=== PATIENT | male | born 1995 | race Caucasian/White ===

== ENCOUNTER 2023-04-17 11:57 | Emergency (ER) | payer MEDICAID ==
[~2023-04-17] VITALS: Ht 172.7 cm; Wt 59.1 kg
[2023-04-17 11:59] VITALS: BP 121/77
== END 2023-04-17 12:29 ==
LOC: ER 11:57
DX: S00.83XA Contusion of other part of head, initial encounter (principal); F10.120 Alcohol abuse with intoxication, uncomplicated; V94.89XA Other water transport accident, initial encounter; Y93.89 Activity, other specified; Y92.89 Other specified places as the place of occurrence of the external cause; Y99.8 Other external cause status
CPT/HCPCS: 99283